=== PATIENT | male | born 1970 | race Caucasian/White ===

== ENCOUNTER 2021-09-22 06:18 | Day surgery (SDC) | payer OTHER ==
[~2021-09-22 06:18] MED LIST: Lactated Ringers 1,000 ML IV SCH; Sodium Chloride 0.9% 10 ML Syringe FLUSH PRN
[2021-09-22] MEDS ORDERED: Sodium Chloride 0.9% 10 ML Syringe FLUSH PRN (07:00)
[2021-09-22] MEDS ORDERED: Lactated Ringers 1,000 ML IV SCH (07:00)
[2021-09-22] MEDS ORDERED: Citric Acid/Sodium Citrate Solution 30 ML Cup PO ONE (07:22)
[2021-09-22] MEDS ORDERED: Propofol 200 MG/20 ML SDV ONE (07:44)
[2021-09-22] MEDS ORDERED: fentaNYL 100 MCG/2 ML SDV ONE (07:44)
--- NOTE | 2021-09-23 12:23 | OR ---
PREOPERATIVE DIAGNOSIS: First screening colonoscopy. POSTOPERATIVE DIAGNOSIS: Inadequate prep. PROCEDURE PERFORMED: Total flexible colonoscopy. ANESTHESIA: MAC anesthesia. COMPLICATIONS: None apparent. BLOOD LOSS: None. FINDINGS: There was a large amount of stool throughout the colon, which could not be suctioned precluding full exam. I did not appreciate any large masses, but a large polyp certainly could have been missed. Start time 0751, cecum 0754, stop 0758. BOWEL PREP: [place] class 1. INDICATIONS FOR PROCEDURE: Mr. Donovan is a 51-year-old male who is here for his first screening colonoscopy. No history of bloody or dark black stools. No family history of colon cancer. DESCRIPTION OF PROCEDURE: After informed was obtained, patient was placed in left lower decubitus position. MAC anesthesia was induced per anesthesia colleagues without incident. The colonoscope was introduced per rectum and advanced all the way to the cecum. The terminal ileum was intubated and photographed. We photographed what was felt the appendiceal orifice as there was a large amount of stool precluding complete evaluation of the cecum. The colonoscope was then withdrawn, but the amount of residual stool precluded any sort of significant mucosal exam. Retroflexed view was obtained, and the colonoscope was removed. The patient was awoken from anesthesia by Anesthesia colleagues without incident. RECOMMENDATIONS: Repeat colonoscopy within the next year with GoLYTELY split prep to try and obtain a clean colon for exam. RKM: 09/22/2021 08:10:55 MODL: 09/22/2021 14:53:20 /[id number]
== END 2021-09-22 09:09 | disposition home or self-care (01) ==
LOC: VM.SDS 06:18
PROVIDERS: ATTEND Student in an Organized Health Care Education/Training Program
DX: Z12.11 Encounter for screening for malignant neoplasm of colon (principal); I10 Essential (primary) hypertension; G47.33 Obstructive sleep apnea (adult) (pediatric); E66.9 Obesity, unspecified; K21.9 Gastro-esophageal reflux disease without esophagitis; G89.29 Other chronic pain; M54.9 Dorsalgia, unspecified; E78.5 Hyperlipidemia, unspecified; R73.9 Hyperglycemia, unspecified; Z98.1 Arthrodesis status; Z98.890 Other specified postprocedural states; Z79.899 Other long term (current) drug therapy; Z88.8 Allergy status to other drugs, medicaments and biological substances; Z88.0 Allergy status to penicillin; Z87.891 Personal history of nicotine dependence
CPT/HCPCS: 00812; A9270-GY; J2704; J3010; J7120